=== PATIENT | male | born 1955 | race African-American/Black ===

== ENCOUNTER 2019-09-14 11:57 | Emergency (ER) | payer MEDICAID ==
[~2019-09-14] VITALS: Ht 177.8 cm; Wt 80.0 kg
[2019-09-14 12:01] VITALS: BP 150/76
[2019-09-14] MEDS ORDERED: HYDROCODONE/ACETAMINOPHEN 5/325MG TABLET PO ONE (13:45)
[2019-09-14] MEDS ORDERED: TETANUS, DIPHTHERIA, PERTUSSIS VAC/PF 0.5ML (>7YR OLD) IM ONE (14:30)
== END 2019-09-14 16:37 | disposition home or self-care (01) ==
LOC: ER 13:13
DX: S06.891A Other specified intracranial injury with loss of consciousness of 30 minutes or less, initial encounter (principal); S40.012A Contusion of left shoulder, initial encounter; S20.219A Contusion of unspecified front wall of thorax, initial encounter; V11.0XXA Pedal cycle driver injured in collision with other pedal cycle in nontraffic accident, initial encounter; Y93.89 Activity, other specified; Y92.410 Unspecified street and highway as the place of occurrence of the external cause; I10 Essential (primary) hypertension; E78.00 Pure hypercholesterolemia, unspecified; Z23 Encounter for immunization
CPT/HCPCS: 71045; 90471; 90715; 99284

== ENCOUNTER 2020-01-02 14:26 | Inpatient (IN) | payer MEDICAID ==
[~2020-01-02] VITALS: Ht 180.3 cm; Wt 86.6 kg
[2020-01-02] MEDS ORDERED: VANCOMYCIN 1 G PREMIX 200 ML IV ONE (15:45)
[2020-01-02] MEDS ORDERED: PIPERACILLIN/TAZ 3.375G PREMIX 50 ML IV ONE (15:45)
[2020-01-02] MEDS ORDERED: HYDROCODONE/ACETAMINOPHEN 5/325MG TABLET PO ONE (16:15)
[2020-01-02 16:41] LABS: BASOPHILS % 1.4 % (0.0-2.0); EOSINOPHILS % 0.6 % (0.0-5.0); HEMATOCRIT. 44.4 % (42.0-52.0); LYMPHOCYTES % 16.9 % (20.0-50.0); MEAN CORPUSCULAR HEMOGLOBIN 29.4 pg (28.0-32.0); MEAN CORPUSCULAR VOLUME 86.6 fL (80.0-94.0); MEAN PLATELET VOLUME 9.4 fl (7.4-10.4); MONOCYTES % 9.8 % (2.0-8.0); NEUTROPHILS % 71.3 % (40.0-76.0); PLATELET 252 x1000/uL (130-400); RED BLOOD CELL COUNT 5.12 mill/uL (4.7-6.1); RED CELL DISTRIBUTION WIDTH 15.2 % (11.6-14.6)
[2020-01-02 16:43] LABS: CHLORIDE 108 mEq/L (98-107)
[2020-01-02] MEDS ORDERED: TETANUS, DIPHTHERIA, PERTUSSIS VAC/PF 0.5ML (>7YR OLD) IM ONE (17:30)
[2020-01-02] MEDS ORDERED: CLONIDINE 0.1MG TABLET PO PRN (17:45)
[2020-01-02] MEDS ORDERED: ONDANSETRON HCL 4MG/2ML INJ IV PRN (17:45)
[2020-01-02] MEDS ORDERED: PIPERACILLIN/TAZ 3.375G PREMIX 50 ML IV SCH (17:45)
[2020-01-02] MEDS ORDERED: ACETAMINOPHEN 325MG TABLET PO PRN (17:45)
[2020-01-02 18:19] LABS: PHOSPHORUS 3.2 mg/dL (2.5-4.9)
[2020-01-02] MEDS: MORPHINE SULFATE 2 MG/ML CPJ (NOT FOR IM USE) IV PRN (21:58)
[2020-01-02 22:00] VITALS: BP 141/87
[2020-01-03] VITALS: BP 119/67
[2020-01-03] MEDS: PIPERACILLIN/TAZOBACTAM 3.375 G in DEXT 5% WATER 100 ML IV SCH ×3 (00:30→15:18)
[2020-01-03] MEDS ORDERED: VANCOMYCIN 1 G PREMIX 200 ML IV SCH (02:00)
[2020-01-03] MEDS: MORPHINE SULFATE 2 MG/ML CPJ (NOT FOR IM USE) IV PRN ×3 (02:19→17:05)
[2020-01-03 04:00] VITALS: BP 117/61
[2020-01-03] MEDS ORDERED: HYDR-4001 MT (04:19)
[2020-01-03 06:42] LABS: BASOPHILS % 0.7 % (0.0-2.0); EOSINOPHILS % 1.8 % (0.0-5.0); HEMATOCRIT. 39.6 % (42.0-52.0); LYMPHOCYTES % 27.4 % (20.0-50.0); MEAN CORPUSCULAR HEMOGLOBIN 28.7 pg (28.0-32.0); MEAN CORPUSCULAR VOLUME 87.2 fL (80.0-94.0); MEAN PLATELET VOLUME 9.1 fl (7.4-10.4); MONOCYTES % 12.2 % (2.0-8.0); NEUTROPHILS % 57.9 % (40.0-76.0); PLATELET 238 x1000/uL (130-400); RED BLOOD CELL COUNT 4.54 mill/uL (4.7-6.1); RED CELL DISTRIBUTION WIDTH 14.8 % (11.6-14.6)
[2020-01-03 06:53] LABS: CHLORIDE 108 mEq/L (98-107)
[2020-01-03 07:03] LABS: LDL CHOLESTEROL 98 mg/dL (5-100)
[2020-01-03 07:04] LABS: HDL CHOLESTEROL 47 mg/dL (40-59)
[2020-01-03 08:00] VITALS: BP 109/63
[2020-01-03] MEDS ORDERED: LIDOCAINE HCL/EPINEPHRINE 1%-EPI 1:100,000 20 ML VIAL INFIL SCH (08:00)
[2020-01-03] MEDS ORDERED: LIDOCAINE HCL 4% CREAM 76GM TUBE TP PRN (08:00)
[2020-01-03 12:00] VITALS: BP 123/76
[2020-01-03] MEDS ORDERED: CEPH750C9 MT (13:23)
[2020-01-03 16:00] VITALS: BP 124/62
[2020-01-03] MEDS: VANCOMYCIN 1 G PREMIX 200 ML IV SCH (17:03)
[2020-01-03 20:00] VITALS: BP 123/75
[2020-01-04] VITALS: BP 120/74
[2020-01-04] MEDS: PIPERACILLIN/TAZOBACTAM 3.375 G in DEXT 5% WATER 100 ML IV SCH ×2 (00:21→08:14)
[2020-01-04] MEDS: MORPHINE SULFATE 2 MG/ML CPJ (NOT FOR IM USE) IV PRN ×2 (02:40→07:06)
[2020-01-04 04:00] VITALS: BP 117/68
[2020-01-04] MEDS: VANCOMYCIN 1 G PREMIX 200 ML IV SCH (06:06)
[2020-01-04 07:38] LABS: CHLORIDE 107 mEq/L (98-107)
[2020-01-04 07:45] LABS: VANCOMYCIN TROUGH 7.3 ug/mL (5.0-10.0)
[2020-01-04 08:00] VITALS: BP 119/67
[2020-01-04 11:32] VITALS: BP 118/76
[2020-01-04 12:00] VITALS: BP 118/76
[2020-01-04] MEDS ORDERED: VANCOMYCIN 1250MG in DEXTROSE 5% WATER 250ML IV SCH (16:00)
== END 2020-01-04 15:28 | disposition home or self-care (01) | DRG 383 ==
LOC: ER 14:26 → 6EST 17:31 → EDBEDREQ 17:32 → EDBEDREQTM 17:32 → ENRESERV 20:37
PROVIDERS: ADMIT Internal Medicine; ATTEND Internal Medicine
PROC: 0JBR0ZZ Excision of Left Foot Subcutaneous Tissue and Fascia, Open Approach (ICD-10-PCS; principal; 2020-01-03)
DX: L03.116 Cellulitis of left lower limb (principal); F20.9 Schizophrenia, unspecified; M17.0 Bilateral primary osteoarthritis of knee; F17.210 Nicotine dependence, cigarettes, uncomplicated; X10.1XXA Contact with hot food, initial encounter; L03.115 Cellulitis of right lower limb; T25.121A Burn of first degree of right foot, initial encounter; T25.122A Burn of first degree of left foot, initial encounter; Z88.8 Allergy status to other drugs, medicaments and biological substances; Y93.89 Activity, other specified; Y92.098 Other place in other non-institutional residence as the place of occurrence of the external cause; Y99.8 Other external cause status
CPT/HCPCS: 36415; 80048; 80053; 80061; 80202; 83735; 84100; 84443; 85025; 87070; 93970; 97162; 99285; J2270; J2543; J3370; J3490; J7060

== ENCOUNTER 2022-09-06 08:24 | Emergency (ER) | payer MEDICARE, MEDICAID ==
[~2022-09-06] VITALS: Ht 170.2 cm; Wt 81.0 kg
[~2022-09-06 08:24] MED LIST: CEPH750C9 MT; HYDR-4001 MT
[2022-09-06 08:25] VITALS: BP 174/117
[2022-09-06] MEDS ORDERED: ACETAMINOPHEN 325MG TABLET PO ONE (09:15)
[2022-09-06] MEDS ORDERED: TOPUD MT (10:40)
== END 2022-09-06 10:49 | disposition home or self-care (01) ==
LOC: ER 08:24
DX: M25.562 Pain in left knee (principal); M25.561 Pain in right knee; I10 Essential (primary) hypertension; Z88.6 Allergy status to analgesic agent; Z98.890 Other specified postprocedural states; W01.0XXA Fall on same level from slipping, tripping and stumbling without subsequent striking against object, initial encounter; Y93.89 Activity, other specified; Y92.89 Other specified places as the place of occurrence of the external cause; Y99.8 Other external cause status
CPT/HCPCS: 73562; 99283